=== PATIENT | female | born 1960 | race Caucasian/White ===

== ENCOUNTER 2016-10-12 07:00 | Inpatient (IN) | payer BC ==
[2016-10-02 12:34] VITALS: BMI 35.0
[2016-10-16] MEDS ORDERED: TRANEXAMIC ACID 1,000 MG in SODIUM CHLORIDE 0.9% 100 ML IVPB ONE ×4 (05:00)
[2016-10-16] MEDS ORDERED: MIDAZOLAM 2 MG/2 ML VIAL IV PRN (05:52)
[2016-10-16] MEDS ORDERED: DEXAMETHASONE SOD PHOSPHATE 10 MG/ML 1 ML VIAL IV ONE (05:52)
[2016-10-16] MEDS: LACTATED RINGERS 1,000 ML IV SCH ×3 (08:18→19:54)
[2016-10-16] MEDS ORDERED: LIDOCAINE 1% 20 ML VIAL (10MG/ML) FOR IV START INTRADERMA ONE (08:18)
[2016-10-16] MEDS: ONDANSETRON 4 MG/2 ML VIAL IVP ONE ×2 (08:18→12:39)
[2016-10-16] MEDS ORDERED: LACTATED RINGERS 1,000 ML BAG IV ONE (09:49)
[2016-10-16] MEDS ORDERED: SODIUM CHLORIDE 0.9% 100 ML BAG ONE (09:49)
[2016-10-16] MEDS ORDERED: SODIUM CHLORIDE 0.9% IRRIG 3,000 ML BAG IRRIGATION ONE (09:49)
[2016-10-16] MEDS ORDERED: SODIUM CHLORIDE 0.9% 500 ML BAG ONE (09:49)
[2016-10-16] MEDS ORDERED: HYDROmorphone (PF) 1 MG/ML ONE (09:49)
[2016-10-16] MEDS ORDERED: MIDAZOLAM 2 MG/2 ML VIAL ONE (09:49)
[2016-10-16] MEDS ORDERED: diphenhydrAMINE 50 MG/ML 1 ML VIAL ONE (09:49)
[2016-10-16] MEDS ORDERED: KETOROLAC 30 MG/ML 1 ML VIAL ONE (09:49)
[2016-10-16] MEDS ORDERED: fentaNYL (PF) 50 MCG/ML 2 ML AMP ONE (09:49)
[2016-10-16] MEDS: ceFAZolin 2 GM in SODIUM CHLORIDE 0.9% 100 ML IVPB ONE ×2 (09:49→15:42)
[2016-10-16] MEDS ORDERED: PROPOFOL 10 MG/ML 20 ML VIAL IV ONE (09:49)
[2016-10-16] MEDS ORDERED: ceFAZolin 1,000 MG VIAL ONE (09:49)
[2016-10-16] MEDS ORDERED: ceFAZolin 3,000 MG in SODIUM CHLORIDE 0.9% IRRIGATIO 3,000 ML IRRIGATION ONE (10:23)
[2016-10-16] MEDS ORDERED: LACTATED RINGERS 1,000 ML IV ONE (10:49)
[2016-10-16] MEDS ORDERED: ACETAMINOPHEN TAB 325 MG TAB PO PRN (12:05)
[2016-10-16] MEDS ORDERED: MAGNESIUM HYDROXIDE 2,400 MG/10 ML CUP PO PRN (12:05)
[2016-10-16] MEDS ORDERED: HYDROmorphone 1 MG/ML 1 ML SYRINGE IVP PRN ×2 (12:05)
[2016-10-16] MEDS ORDERED: NA PHOS,M-B/NA PHOS,DI-BA 133 ML ENEMA RECTAL PRN (12:05)
[2016-10-16] MEDS ORDERED: HYDROcodone/APAP 5-325MG 1 EACH TAB PO PRN (12:05)
[2016-10-16] MEDS ORDERED: NALOXONE 0.4 MG/ML 1 ML VIAL IV PRN (12:05)
[2016-10-16] MEDS ORDERED: ONDANSETRON 4 MG/2 ML VIAL IVP PRN (12:05)
[2016-10-16] MEDS ORDERED: BISACODYL 10 MG SUPP RECTAL PRN (12:05)
[2016-10-16] MEDS ORDERED: TEMAZEPAM 15 MG CAP PO PRN (12:05)
[2016-10-16] MEDS: HYDROmorphone 1 MG/ML 1 ML SYRINGE IVP PRN ×3 (12:39→21:43)
--- NOTE | 2016-10-16 12:50 | XR ---
Limited left knee HISTORY: Status post left knee arthroplasty No comparisons 2 views of the left knee Patient is status post left knee arthroplasty. Lucency in the soft tissues is compatible with postop state. There is anatomic alignment. Ossific density present medial to the proximal tibia could possib ly represent a large osteophyte, difficult to exclude a loose body. IMPRESSION: Orthopedic follow-up, additional findings above.
[2016-10-16] MEDS: HYDROcodone/APAP 5-325MG 1 EACH TAB PO PRN ×2 (13:46→19:07)
[2016-10-16] MEDS ORDERED: WARFARIN 5 MG TAB PO ONE (18:00)
[2016-10-16] MEDS: ceFAZolin 2 GM in SODIUM CHLORIDE 0.9% 100 ML IVPB SCH ×2 (18:07→23:46)
--- NOTE | 2016-10-16 18:52 | CONS ---
DATE OF CONSULTATION: 10/16/2016 REASON FOR CONSULTATION: Advice regarding GERD and other multiple medical issues, requested by Orthopedics. HISTORY OF PRESENT ILLNESS: This 56-year-old woman with a past medical history of GERD, history of DJD, history of nicotine dependence, being followed by Dr. Moore in the outpatient setting, was admitted after left total knee arthroplasty. There is no history of chest pain, no history of palpitations, headache, loss of consciousness, nausea, vomiting, diarrhea, fever, rigor or chills at this time. PAST MEDICAL HISTORY: 1. History of GERD. 2. DJD. 3. History of colonoscopy. 4. History of nicotine dependence. 5. Ethanol. Medications prior to admission include omeprazole 20 mg daily. ALLERGIES: NONE. FAMILY HISTORY: No history of heart disease or strokes in the family. SOCIAL HISTORY: Previous history of smoking. Alcohol per chart. REVIEW OF SYSTEMS: ENT: No diminished hearing. No diminished vision. CARDIOVASCULAR SYSTEM: No angina, palpitations. RESPIRATORY SYSTEM: No cough, hemoptysis. GI: No nausea, vomiting. : No dysuria, retention. NERVOUS SYSTEM: No numbness or weakness. ALLERGY/IMMUNOLOGY: No asthma or hayfever. MUSCULOSKELETAL: As mentioned earlier. HEMATOLOGY/ONCOLOGY: No history of anemia. ENDOCRINE: No history of diabetes, hypothyroidism. CONSTITUTIONAL: As mentioned earlier. DERMATOLOGY: Negative. RHEUMATOLOGY: Negative. PSYCHIATRY: As mentioned earlier. PHYSICAL EXAMINATION: Patient is alert and oriented x3. Pulse is 69, blood pressure 132/65, respiration 16, temperature normal, pulse ox 97% on 3 L. HEENT: Conjunctivae normal. Oral mucosa moist. NECK: No jugular venous distention. No carotid bruit. No lymph node enlargement. CARDIOVASCULAR SYSTEM: S1, S2 muffled. RESPIRATORY: Breath sounds diminished at the bases. A few scattered rhonchi and crackles. ABDOMEN: Soft, nontender. No mass palpable. LEGS: Status post knee arthroplasty. NERVOUS SYSTEM: Higher functions as mentioned earlier. Moves all 4 limbs. No focal motor or sensory deficit. LYMPHATICS: No lymph node palpable in neck, axillae or groin. SKIN: No ulcer, rash, bleeding. PREOPERATIVE LABS: CBC within normal limits. Coags are normal. Chemistry showed BUN at 25, glucose 143. UA showed minimal abnormalities. ASSESSMENT: 1. Status post left total knee arthroplasty. 2. History of gastroesophageal reflux disease. 3. History of nicotine dependence. 4. History of ethanol. 5. Increased random blood sugar. RECOMMENDATIONS AND DISCUSSION: In this 56-year-old woman who presented with multiple medical issues, I would recommend continuing current medications, continuing symptomatic treatment. I recommend baseline labs. DVT prophylaxis. Incentive spirometry. Otherwise, continue with the omeprazole. Will follow the patient closely with you. Patient may be asked to follow up with Dr. Moore closely after discharge. Thank you, Dr. Gama, for letting us participate in the care of this patient.
[2016-10-16] MEDS: hydrOXYzine PAMOATE 25 MG CAP PO PRN (19:06)
[2016-10-16] MEDS: PANTOPRAZOLE 40 MG TABLET PO SCH (19:08)
[2016-10-16] MEDS: SENNOSIDES-DOCUSATE SODIUM 1 EACH TAB PO SCH (19:53)
[2016-10-17] MEDS: hydrOXYzine PAMOATE 25 MG CAP PO PRN ×4 (00:30→23:30)
[2016-10-17] MEDS: HYDROcodone/APAP 5-325MG 1 EACH TAB PO PRN (00:31)
[2016-10-17] MEDS: HYDROmorphone 1 MG/ML 1 ML SYRINGE IVP PRN (04:45)
[2016-10-17] MEDS: LACTATED RINGERS 1,000 ML IV SCH ×3 (05:04→18:55)
[2016-10-17 07:27] LABS: Basophils % (A) 1 %; CHCM 33.4; Eosinophils % (A) 0 %; HCT 35.2 % (34.0-46.0); HDW 2.42; HGB 11.4 gm/dL (11.4-16.0); Luc # (Auto) 0.08; Luc % (Auto) 1; Lymphocytes # (A) 2.2 k/uL (1.0-4.8); Lymphocytes % (A) 29 %; MCH 31.2 pg (25.0-35.0); MCHC 32.4 g/dL (31.0-37.0); MCV 96.5 fL (80.0-100.0); Mean Platelet Volume 7.2; Monocytes # (A) 0.5 k/uL (0-1.0); Monocytes % (A) 7 %; Neutrophils # (A) 4.9 k/uL (1.3-7.7); Neutrophils % (A) 63 %; RBC 3.64 m/uL (3.80-5.40); RDW 13.2 % (11.5-15.5); WBC 7.7 k/uL (3.8-10.6); WBC (Perox) 8.35
[2016-10-17 07:31] LABS: INR 1.1 (<1.1); Prothrombin Time 11.4 sec (9.0-12.0)
[2016-10-17] MEDS ORDERED: HYDROcodone/APAP 7.5-325MG 1 EACH TAB PO PRN ×2 (07:38)
[2016-10-17 07:39] LABS: Anion Gap 11 mmol/L; Blood Urea Nitrogen 14 mg/dL (7-17); Calcium 8.4 mg/dL (8.4-10.2); Carbon Dioxide 26 mmol/L (22-30); Chloride 102 mmol/L (98-107); Glucose 94 mg/dL (74-99); Non-African American GFR(MDRD) >60 (>60 ml/min/1.73 sqM); Potassium 4.9 mmol/L (3.5-5.1); Sodium 139 mmol/L (137-145)
--- NOTE | 2016-10-17 08:39 | P.PN ---
Subjective Principal diagnosis: Status post left total knee arthroplasty This is a 56 year-old female post left total knee arthroplasty. This is post- op day 1. The patient was evaluated at the bedside today. The patient denies nausea, vomiting, abdominal pain, shortness of breath, and chest pain this morning. She states her pain is controlled at this time. The patient has not been up with physical therapy yet this morning. Objective - Vital Signs Vital signs: Vital Signs Temp 98.4 F 10/17/16 03:50 Pulse 76 10/17/16 03:50 Resp 16 10/17/16 03:50 BP 110/54 10/17/16 03:50 Pulse Ox 95 10/17/16 03:50 Intake & Output 10/16/16 10/17/16 10/17/16 18:59 06:59 18:59 Intake Total 1902 2000 Output Total 875 700 Balance 1027 1300 Weight 92.533 kg Intake: IV 1902 1000 Lactated Ringers 1,000 ml 100 1000 @ 100 mls/hr IV .Q10H [facility] Rx#:[id number] Oral 1000 Output: Urine 850 700 Estimated Blood Loss 25 Other: Voiding Method Indwelling Catheter Indwelling Catheter - Exam The patient does not appear in acute distress. Alert and orientated x3. Dressing is clean dry and intact. Incision appears fine with no erythema or active drainage. Calf is soft and nontender. Good foot and ankle motion without difficulty. Sensation and circulatory status is intact. - Labs CBC & Chem 7: 10/17/16 06:54 10/17/16 06:54 Labs: Abnormal Lab Results - Last 24 Hours (Table) 10/17/16 Range/Units 06:54 RBC 3.64 L (3.80-5.40) m/uL Laboratory Tests 10/17/16 06:54 PT 11.4 INR 1.1 Assessment and Plan (1) Primary localized osteoarthritis of left knee Status: Acute (2) Status post total left knee replacement not using cement Status: Acute Plan: 1. Continue pain control 2. Anticoagulation with Coumadin per protocol 3. Start physical therapy, CPM, and ambulation 4. Anticipate discharge home with homecare in the next 1-2 days
[2016-10-17] MEDS: PANTOPRAZOLE 40 MG TABLET PO SCH (10:11)
[2016-10-17] MEDS ORDERED: HYDROcodone/APAP 10-325MG 1 EACH TAB PO PRN (13:04)
[2016-10-17] MEDS ORDERED: KETOROLAC 30 MG/ML 1 ML VIAL IVP STA (13:04)
[2016-10-17] MEDS: HYDROcodone/APAP 10-325MG 1 EACH TAB PO PRN ×2 (13:17→18:52)
[2016-10-17] MEDS ORDERED: WARFARIN 7.5 MG TAB PO ONE (18:00)
[2016-10-17] MEDS: SENNOSIDES-DOCUSATE SODIUM 1 EACH TAB PO SCH (18:51)
[2016-10-18] MEDS: HYDROcodone/APAP 10-325MG 1 EACH TAB PO PRN ×4 (00:39→17:43)
[2016-10-18] MEDS: LACTATED RINGERS 1,000 ML IV SCH ×3 (05:09→15:25)
[2016-10-18] MEDS: hydrOXYzine PAMOATE 25 MG CAP PO PRN (06:02)
--- NOTE | 2016-10-18 06:29 | OP ---
DATE OF SERVICE: 10/16/2016 SURGEON: NAVEEN ARCHER DO BUSSER: Ana Templeton NP PREOPERATIVE DIAGNOSIS: Severe degenerative joint disease of the left knee. POSTOPERATIVE DIAGNOSIS: Severe degenerative joint disease of the left knee. OPERATION: Left total knee replacement arthroplasty utilizing Regino Persona press-fit components. ANESTHESIA: ESTIMATED BLOOD LOSS: SPECIMENS REMOVED: COMPLICATIONS: OPERATIVE FINDINGS: DESCRIPTION OF PROCEDURE: The patient was taken to the operative suite and placed in supine position. Spinal anesthesia was performed by the department of anesthesiology. A Betadine prep was carried out over the left knee from mid thigh to mid calf. Sterile drapes applied in the usual manner. Pneumatic tourniquet was inflated. A medial parapatellar incision was developed. Further dissection through the subcutaneous tissue performed. The medial retinaculum was identified. The patella was everted and dislocated laterally as the knee was brought into flexion and held in leg hess. The intramedullary cutting guide and jig was brought into position and appropriate alignment and cuts were developed for a size 5 femoral component. The provisionary component was then impacted in position. Alignment and stability maintained. Excellent bone component interface was noted. A tibial cutting guide and jig was brought into position and appropriate wafer cut was developed. The menisci both medial and lateral were excised. A size 4 tibial metal-backed plate was selected and utilization of a 12 mm provisionary spacer was noted. The knee was taken through range of motion and appropriate alignment and stability present. The spacer was removed and tibial tray was marked for position and appropriate peg holes were drilled in preparation for final tray. With the patella everted, the shelving planer was utilized in preparing for elected size 29 mm press-fit patellar component. All components were removed. Copious irrigation with Pulsavac antibiotic solution was performed. With the knee held in flexion the trabecular tray size 4 was impacted into position, predrilled peg holes and excellent bone component interface was noted. The final size 5 left femoral component was impacted into the position and appropriate bone component interface was maintained. The size 29 mm final patellar component was placed in peg hole and impacted and alignment maintained. The size 12 polyethylene component was locked in to the plate and alignment and position noted. All areas were irrigated. With the knee in flexion, copious irrigation was performed. The leg was brought into slight flexion and pneumatic tourniquet was deflated. Superficial bleeding was well controlled with electrocautery. Lateral retinaculum release was performed. Medial retinaculum was then approximated with #3 Vicryl suture in a horizontal mattress fashion and the #3 Vicryl Quill suture was utilized in reinforcing the medial retinaculum. Subcutaneous tissue was approximated with #2-0 Vicryl suture in interrupted fashion and #3 Quill suture was utilized in subcuticular closure. Dermabond was utilized in closing the wound. Betadine, Adaptic and sterile pressure dressing was applied. The patient was transferred to her room in satisfactory postop condition. GROSS PATHOLOGY: There was severe degenerative joint disease of the left knee with medial lateral subluxation. BPD
[2016-10-18 07:25] LABS: INR 1.2 (<1.1); Prothrombin Time 11.6 sec (9.0-12.0)
[2016-10-18] MEDS: PANTOPRAZOLE 40 MG TABLET PO SCH (08:08)
--- NOTE | 2016-10-18 08:27 | P.PN ---
Subjective Principal diagnosis: Status post left total knee arthroplasty This is a 56 year-old female post left total knee arthroplasty. This is post- op day 2. The patient was evaluated at the bedside today. The patient denies nausea, vomiting, abdominal pain, shortness of breath, and chest pain this morning. She states her pain is controlled at this time. The patient states she has ambulated to the bathroom and in the hallway. Objective - Vital Signs Vital signs: Vital Signs Temp 98.9 F 10/18/16 07:56 Pulse 85 10/18/16 07:56 Resp 16 10/18/16 07:56 BP 126/61 10/18/16 07:56 Pulse Ox 95 10/18/16 07:56 Intake & Output 10/17/16 10/18/16 10/18/16 18:59 06:59 18:59 Intake Total 480 400 Output Total 650 Balance -170 400 Weight 92.533 kg Intake: Oral 480 400 Output: Urine 650 Uretheral (Ley) 250 Other: # Voids 1 1 - Exam The patient does not appear in acute distress. Alert and orientated x3. Dressing is clean dry and intact. Incision appears fine with no erythema or active drainage. Calf is soft and nontender. Good foot and ankle motion without difficulty. Sensation and circulatory status is intact. - Labs CBC & Chem 7: 10/17/16 06:54 10/17/16 06:54 Labs: Laboratory Tests 10/18/16 06:40 PT 11.6 INR 1.2 Assessment and Plan (1) Primary localized osteoarthritis of left knee Status: Acute (2) Status post total left knee replacement not using cement Status: Acute Plan: 1. Continue pain control 2. Anticoagulation with Coumadin per protocol 3. Continue physical therapy, CPM, and ambulation 4. Anticipate discharge home with homecare tomorrow
--- NOTE | 2016-10-18 08:47 | PN ---
DATE OF SERVICE: 10/17/2016 This is a 56-year-old woman who was admitted after left total knee arthroplasty, has improved significantly. No chest pain, no palpitation. No fever. On exam, alert and oriented x3. Pulse 75, blood pressure 125/65, respirations 16, temperature is 98.4, pulse ox 94% on room air. HEENT: Conjunctivae normal. NECK: No jugular venous distension. CARDIOVASCULAR SYSTEM: S1, S2, muffled. RESPIRATORY: Breath sounds diminished at bases. No rhonchi, no crackles. Abdomen is soft, nontender. EXTREMITIES: Legs status post knee surgery. LABS: CBC, BMP within normal limits. ASSESSMENT: 1. Status post left total knee arthroplasty. 2. History of gastroesophageal reflux disease. 3. History of nicotine dependence. 4. History of ethyl alcohol. 5. Increased random blood sugar. RECOMMENDATION: Recommend to continue with the current medications, continue with the monitoring and symptomatic treatment. Continue with the DVT prophylaxis, pain medication. Closely follow with orthopedic surgery. Further recommendations to follow.
[2016-10-18] MEDS ORDERED: ETODOLAC 400 MG TAB PO PRN (10:11)
[2016-10-18] MEDS ORDERED: KETOROLAC 30 MG/ML 1 ML VIAL IM STA (10:13)
--- NOTE | 2016-10-18 15:29 | PN ---
DATE OF SERVICE: 10/18/2016 This 56-year-old woman was admitted after left knee arthroplasty, improved significantly. No chest pain, no palpitations. No fever. On exam, alert and oriented x3. Pulse 82, blood pressure 118/59, respirations 13, temperature 97.4, pulse ox 92% on room air. HEENT: Conjunctivae normal. NECK: No jugular venous distention. CARDIOVASCULAR: S1 and S2, muffled. RESPIRATORY: Breath sounds diminished at the bases. No rhonchi, no crackles. ABDOMEN: Soft, nontender. LEGS: Status post surgery. Minimal swelling of the left leg was present. NERVOUS SYSTEM: No focal deficits. LABS: Hemoglobin 11.4. ASSESSMENT: 1. Status post left total knee joint arthroplasty. 2. History gastroesophageal reflux disease. 3. History of nicotine dependence. 4. History of EtOH. 5. History of increased random blood sugar. RECOMMENDATIONS AND DISCUSSION: I recommend to continue the current medications, continue monitoring and symptomatic treatment. DVT prophylaxis. Incentive spirometry. Continue the current medications. Pain control. Further recommendations to follow.
[2016-10-18] MEDS ORDERED: WARFARIN 7.5 MG TAB PO ONE (18:00)
[2016-10-18] MEDS: SENNOSIDES-DOCUSATE SODIUM 1 EACH TAB PO SCH (20:00)
[2016-10-19] MEDS: HYDROcodone/APAP 10-325MG 1 EACH TAB PO PRN ×3 (00:02→10:46)
[2016-10-19 07:14] LABS: Basophils # (A) 0.1 k/uL (0-0.2); Basophils % (A) 2 %; CHCM 33.6; Eosinophils # (A) 0.2 k/uL (0-0.7); Eosinophils % (A) 3 %; HCT 32.5 % (34.0-46.0); HDW 2.43; HGB 10.5 gm/dL (11.4-16.0); Luc % (Auto) 2; Lymphocytes # (A) 1.9 k/uL (1.0-4.8); Lymphocytes % (A) 29 %; MCH 30.9 pg (25.0-35.0); MCHC 32.3 g/dL (31.0-37.0); MCV 95.7 fL (80.0-100.0); Monocytes # (A) 0.4 k/uL (0-1.0); Monocytes % (A) 7 %; Neutrophils # (A) 3.8 k/uL (1.3-7.7); Neutrophils % (A) 58 %; RBC 3.39 m/uL (3.80-5.40); RDW 13.1 % (11.5-15.5); WBC 6.6 k/uL (3.8-10.6); WBC (Perox) 6.87
[2016-10-19 07:28] LABS: INR 1.3 (<1.1)
[2016-10-19 07:38] VITALS: BP 134/63; PULSE 83; RESP 16; TEMP 97.6
[2016-10-19] MEDS: PANTOPRAZOLE 40 MG TABLET PO SCH (08:56)
--- NOTE | 2016-10-19 09:36 | P.DS ---
Providers Date of admission: 10/16/16 07:52 Expected date of discharge: 10/19/16 Attending physician: Yonathan Gama Consults: 10/16/16 12:05 Consult Physician Routine Consulting Provider: Tony Ruelas Consult Reason/Comments: medical managment Do you want consulting provider notified?: Yes Primary care physician: Teresa Omer Charbal - Discharge Diagnosis(es) (1) Primary localized osteoarthritis of left knee Current Visit: Yes Status: Acute (2) Status post total left knee replacement not using cement Current Visit: Yes Status: Acute Hospital Course: This is a pleasant 56-year-old female last seen in our office with complaints of left knee pain. Patient has known history of degenerative arthritis of the left knee and presented to discuss options. After discussion and consideration , the patient elected to proceed with a left total knee arthroplasty. Patient was seen preoperatively, and medically cleared for surgery by Dr. Moore. Patient was admitted to [facility] and underwent left total knee arthroplasty with Dr. Gama on 10/16/2016. The procedure was performed without complications or sequelae. The patient is seen and evaluated at bedside today. Pain is well-controlled. Patient has no new complaints today and denies any fevers, chills, nausea, vomiting, or shortness of breath. Vital signs are stable. Dressing is clean dry and intact. Incision looks fine with no erythema or active drainage. Calf is soft and nontender. Patient has full foot and ankle motion without difficulty. Patient's left lower extremity is neurovascularly intact. The patient is orthopedically stable for discharge home today. Pertinent Studies: Laboratory Tests 10/19/16 10/19/16 06:35 06:35 WBC 6.6 RBC 3.39 L Hgb 10.5 L Hct 32.5 L PT 13.0 H INR 1.3 Patient Condition at Discharge: Stable Plan - Discharge Summary New Discharge Prescriptions: Aspirin 325 mg PO DAILY #30 tab HYDROcodone/APAP 10-325MG [[place] 10-325] 1 - 2 tab PO Q4-6H PRN #60 tab PRN Reason: Pain Sennosides-Docusate Sodium [Senokot-S] 2 tab PO DAILY #30 tablet Warfarin [Coumadin] 2.5 mg PO DIRECTED #30 tab Discharge Medication List Omeprazole 20 mg PO DAILY 10/02/16 [History] Aspirin 325 mg PO DAILY #30 tab 10/19/16 [Rx] HYDROcodone/APAP 10-325MG [[place] 10-325] 1 - 2 tab PO Q4-6H PRN #60 tab [Rx] Sennosides-Docusate Sodium [Senokot-S] 2 tab PO DAILY #30 tablet 10/19/16 [Rx] Warfarin [Coumadin] 2.5 mg PO DIRECTED #30 tab 10/19/16 [Rx] Follow up Appointment(s)/Referral(s): Yonathan Gama DO [Doctor of Osteopathic Medicine] - 2 Weeks [facility], [NON-STAFF] - Ambulatory/Diagnostic Orders: Continuous Passive Motion (CPM) Machine [DME.AMB1] Time Frame: 3 Weeks, Location : Determined By Patient Activity/Diet/Wound Care/Special Instructions: Walker - has at home [facility] - [facility] - [phone] - call when you get home for delivery of CPM Weightbearing as tolerated with a walker Coumadin 2.5 mg 1 by mouth every other day for 7 days then take Aspirin 325mg daily for 1 month CPM 5-6 hours daily May shower in 3 days if no drainage from incision Keep incision clean and dry Call [facility] [phone] with questions or concerns Discharge Disposition: HOME WITH HOME HEALTH SERVICES
--- NOTE | 2016-10-19 11:25 | US ---
EXAMINATION TYPE: US venous doppler duplex LE LT DATE OF EXAM: 10/19/2016 9:44 AM COMPARISON: NONE CLINICAL HISTORY: pain, s/p total knee 10/16/16. SIDE PERFORMED: left VESSELS IMAGED: External Iliac Vein (EIV) Common Femoral Vein Deep Femoral Vein Greater Saphenous Vein * Femoral Vein Popliteal Vein Small Saphenous Vein * Proximal Calf Veins (* superficial vessels) Findings: There is spontaneous flow and normal compressibility IMPRESSION: 1. No evidence of DVT
--- NOTE | 2016-10-19 16:23 | PN ---
DATE OF SERVICE: 10/19/2016 This 56-year-old woman who was admitted for left knee arthroplasty is improving significantly. Patient has some leg swelling, and a venous Doppler was requested which showed no evidence of DVT. No chest pain. No palpitation. No fever. No shortness of breath. On exam, alert and oriented x3. Pulse 83, blood pressure 134/66, respiratory rate 16, temperature 97.6, pulse ox 93% on room air. HEENT: Conjunctivae normal. NECK: No jugular venous distention. CARDIOVASCULAR SYSTEM: S1, S2 muffled. No murmur. No thrills. RESPIRATORY SYSTEM: Breath sounds diminished at the bases. No rhonchi. No crackles. ABDOMEN: Soft, non-tender. No mass palpable. LEGS: Status post surgery. Minimal swelling of the left lower leg present. Otherwise, no calf tenderness present. NERVOUS SYSTEM: No focal deficit. Labs at this time show WBC 6.6, hemoglobin 10.5. ASSESSMENT: 1. Status post left total knee arthroplasty. 2. Anemia, postoperative, possibly dilutional, as expected. 3. History of gastroesophageal reflux disease. 4. History of nicotine dementia. 5. History of ethanol. 6. History of increased random blood sugar. RECOMMENDATIONS AND DISCUSSION: I recommend to continue with the current medications, continue with the monitoring, symptomatic treatment, continue with DVT prophylaxis. Otherwise, continue to monitor. Follow up with primary physician in 2 to 3 weeks or p.r.n. Further recommendations to follow. Continue incentive spirometry.
== END 2016-10-19 15:05 | disposition home health service (06) | DRG 470 ==
LOC: 2ORMAIN 10-16 07:52 → 3SUR 10-16 12:05
PROVIDERS: ADMIT Orthopaedic Surgery; ATTEND Orthopaedic Surgery
PROC: 0SRD0JA Replacement of Left Knee Joint with Synthetic Substitute, Uncemented, Open Approach (ICD-10-PCS; principal; 2016-10-16 09:35)
DX: M17.12 Unilateral primary osteoarthritis, left knee (principal); D64.9 Anemia, unspecified; K21.9 Gastro-esophageal reflux disease without esophagitis; Z87.891 Personal history of nicotine dependence; Z79.899 Other long term (current) drug therapy
CPT/HCPCS: 80048; 85025; 85610; 88300

== ENCOUNTER → 2018-04-24 | Outpatient (CLI) | payer BC ==
--- NOTE | 2018-04-08 15:21 | BD ---
EXAMINATION TYPE: Axial Bone Density DATE OF EXAM: 04/08/2018 COMPARISON: NONE CLINICAL HISTORY: Z.78post menopausal w/o HRT Height: 64 IN Weight: 226 LBS RISK FACTORS HISTORY OF: Active: YES Postmenopausal woman: AGE 48 Take estrogen and/or progesterone medications: NOT NOW How long: TOOK CONTROL FOR 25 YEARS MEDICATIONS: Additional Medications: PROTONIX, CARAFATE EXAM MEASUREMENTS: Bone mineral densitometry was performed using the [employer] System. Bone mineral density as measured about the Lumbar spine is: ----- L1-L4(G/cm2): 1.055 T Score Values are as follows: ----- L2: -1.4 ----- L3: -0.6 ----- L4: -1.2 ----- L1-L4: -1.0 Bone mineral density BASELINE Bone mineral density about the R hip (g/cm2): 1.052 Bone mineral density about the L hip (g/cm2): 1.057 T Score values are as follows: -----R Neck: 0.1 -----L Neck: 0.1 -----R Total: 0.9 -----L Total: 0.7 Bone mineral density BASELINE IMPRESSION: Osteopenia lumbar spine. NOTE: T-SCORE=SD OF THE YOUNG ADULT MEAN.
--- NOTE | 2018-04-24 09:20 | MM ---
Reason for exam: screening (asymptomatic). Last mammogram was performed 1 year and 7 months ago. History: Patient is postmenopausal. Family history of breast cancer in aunt. Took hormonal contraceptives for 25 years. Physical Findings: A clinical breast exam by your physician is recommended on an annual basis and results should be correlated with mammographic findings. MG Screening Mammo w CAD Bilateral CC and MLO view(s) were taken. XCCL view(s) were taken of the right breast. Prior study comparison: August 30, 2016, right breast MG work up mamm w CAD RT. August 27, 2016, bilateral MG screening mammo w CAD. The breast tissue is heterogeneously dense. This may lower the sensitivity of mammography. Finding: There are typically benign dystrophic calcifications in the subareolar position. There is a chronic nodularity in the left breast. There is no discrete abnormality. ASSESSMENT: Benign, BI-RAD 2 RECOMMENDATION: Routine screening mammogram of both breasts in 1 year.
--- NOTE | 2018-04-24 09:21 | MM ---
Reason for exam: additional evaluation requested from abnormal screening. Last mammogram was performed 1 month ago. History: Patient is postmenopausal. Family history of breast cancer in aunt. Took hormonal contraceptives for 25 years. MG Follow Up Bilat No Charge Bilateral CC and MLO view(s) were taken. XCCL view(s) were taken of the right breast. Prior study comparison: August 27, 2016, bilateral MG screening mammo w CAD. July 12, 2010, bilateral digital screening mammogram. The breast tissue is heterogeneously dense. This may lower the sensitivity of mammography. There are typically benign dystrophic calcifications in the subareolar position. There is a chronic nodularity in the left breast. There is no discrete abnormality. These results were verbally communicated with the patient and result sheet given to the patient on 04/24/18. ASSESSMENT: Benign, BI-RAD 2 RECOMMENDATION: Return to routine screening mammogram schedule for both breasts.
== END | disposition home or self-care (01) ==
LOC: RADBDWWP 04-08 14:11
PROVIDERS: ATTEND Obstetrics & Gynecology
DX: Z12.31 Encounter for screening mammogram for malignant neoplasm of breast (principal); M85.88 Other specified disorders of bone density and structure, other site; Z78.0 Asymptomatic menopausal state
CPT/HCPCS: 77066; 77067; 77080

== ENCOUNTER → 2020-04-13 | Outpatient (CLI) | payer BC ==
--- NOTE | 2020-04-13 10:58 | MM ---
Reason for exam: screening (asymptomatic). Last mammogram was performed 2 years ago. History: Patient is postmenopausal. Family history of breast cancer in maternal aunt. Took hormonal contraceptives for 25 years beginning at age 16. Physical Findings: A clinical breast exam by your physician is recommended on an annual basis and results should be correlated with mammographic findings. MG Screening Mammo w CAD Bilateral CC and MLO view(s) were taken. XCCL view(s) were taken of the left breast. Prior study comparison: April 24, 2018, bilateral MG follow up bilat no charge. April 08, 2018, bilateral MG screening mammo w CAD. The breast tissue is heterogeneously dense. This may lower the sensitivity of mammography. Finding: There is an intermediate concern, suspicious 11 mm high density, circumscribed, microlobulated mass located 2-3 cm from the nipple in the 12-1 o'clock position of the left breast. New finding since April 24, 2018 and April 08, 2018. ASSESSMENT: Incomplete: need additional imaging evaluation, BI-RAD 0 RECOMMENDATION: Ultrasound of the left breast. [facility] will attempt to contact patient to return for ultrasound.
== END | disposition home or self-care (01) ==
LOC: RADMAMWWP 07:10
PROVIDERS: ATTEND Internal Medicine
DX: Z12.31 Encounter for screening mammogram for malignant neoplasm of breast (principal)
CPT/HCPCS: 77067

== ENCOUNTER → 2020-04-20 | Outpatient (CLI) | payer BC ==
--- NOTE | 2020-04-20 09:02 | USB ---
Reason for exam: additional evaluation requested from abnormal screening. History: Patient is postmenopausal. Family history of breast cancer in maternal aunt. Took hormonal contraceptives for 25 years beginning at age 16. Physical Findings: Nurse did not find any significant physical abnormalities on exam. US Breast Workup LT Left complete breast ultrasound includes all four quadrants, the retroareolar region and axilla. Finding demonstrates a 4 x 3 x 4mm oval, cystic lesion at 1 o'clock, a 4 x 3 x 5mm mixed lesion at 4 o'clock and a 4 x 3 x 4mm mixed lesion at 2 o'clock. These results were verbally communicated with the patient and result sheet given to the patient on 04/20/20. ASSESSMENT: Probably benign, BI-RAD 3 RECOMMENDATION: Follow-up diagnostic mammogram and ultrasound of the left breast in 6 months.
== END | disposition home or self-care (01) ==
LOC: RADUSWWP 07:11
PROVIDERS: ATTEND Internal Medicine
DX: R92.8 Other abnormal and inconclusive findings on diagnostic imaging of breast (principal)

== ENCOUNTER 2020-09-22 11:54 | Emergency (ER) | payer BC ==
[2020-09-22] MEDS ORDERED: KETOROLAC 15 MG/ML 1 ML VIAL IM STA (12:23)
--- NOTE | 2020-09-22 12:45 | ED ---
General Adult HPI - General Chief complaint: Extremity Injury, Lower Stated complaint: Leg Pain Time Seen by Provider: 09/22/20 12:08 Source: patient, RN notes reviewed Mode of arrival: ambulatory Limitations: no limitations - History of Present Illness Initial comments: 60-year-old female presents to the emergency department for right leg pain. Patient reports that for the past 3 days she has has a "gnawing" pain in the right lower leg. Patient states that it has progressively worsened. States it is now painful to bear weight on. States the pain is throughout the entire leg. She states that sometimes it is sharp and shooting. States the top of her foot is tingly. Patient states that about a month ago she had a bout of severe back pain however that has since resolved. At that time she was unable to stand up as of this pain. Patient is denying any weakness of the lower extremities, bladder or bowel changes, fevers or chills, or saddle anesthesia.Patient has no other complaints at this time including shortness of breath, chest pain, abdominal pain, nausea or vomiting, headache, or visual changes. - Related Data Home Medications Medication Instructions Recorded Confirmed Omeprazole 40 mg PO DAILY 10/02/16 09/22/20 Previous Rx's Medication Instructions Recorded predniSONE 50 mg PO DAILY #5 tablet 09/22/20 Allergies Allergy/AdvReac Type Severity Reaction Status Date / Time No Known Allergies Allergy Verified 09/22/20 12:31 Review of Systems ROS Statement: Those systems with pertinent positive or pertinent negative responses have been documented in the HPI. ROS Other: All systems not noted in ROS Statement are negative. Past Medical History Past Medical History: GERD/Reflux History of Any Multi-Drug Resistant Organisms: None Reported Past Surgical History: Orthopedic Surgery Additional Past Surgical History / Comment(s): left knee Past Psychological History: No Psychological Hx Reported Smoking Status: Never smoker Past Alcohol Use History: Occasional Past Drug Use History: None Reported General Exam Limitations: no limitations General appearance: alert, in no apparent distress Head exam: Present: atraumatic, normocephalic, normal inspection Eye exam: Present: normal appearance, PERRL, EOMI. Absent: scleral icterus, conjunctival injection, periorbital swelling ENT exam: Present: normal exam, mucous membranes moist Neck exam: Present: normal inspection, full ROM. Absent: tenderness, meningismus, lymphadenopathy Respiratory exam: Present: normal lung sounds bilaterally. Absent: respiratory distress, wheezes, rales, rhonchi, stridor Cardiovascular Exam: Present: regular rate, normal rhythm, normal heart sounds. Absent: systolic murmur, diastolic murmur, rubs, gallop, clicks GI/Abdominal exam: Present: soft, normal bowel sounds. Absent: distended, tenderness, guarding, rebound, rigid Extremities exam: Present: tenderness (Minimal tenderness in the sciatic notch of the right gluteal), normal capillary refill (Capillary refill less than 2 seconds, DP pulse 2+ in the right lower extremity and equal bilaterally.). Absent: calf tenderness (no calf tenderness, negative Homans sign.), other (No swelling right lower extremity, no erythema) Course Vital Signs 09/22/20 09/22/20 11:57 13:25 Temperature 98.5 F 98.7 F Pulse Rate 90 80 Respiratory 18 16 Rate Blood Pressure 122/77 149/83 O2 Sat by Pulse 97 97 Oximetry Medical Decision Making - Medical Decision Making Vitals are stable. Patient is well-appearing. Patient when you pain in the right leg that is gnawing and sometimes shooting consistent with sciatic pain. Neurovascular status intact. She did have severe back pain one month ago. CT lumbar spine was ordered which showed multilevel disc bulges without spinal canal stenosis. At this time patient was given medications which did help with her pain here in the emergency room. She will be started on steroids and Tylenol 3. I did offer her additional medication before discharge that she did accept. She will follow-up with orthopedics. She'll return here for any worsening symptoms. I discussed this case with attending Dr. Weems who agrees with this assessment and treatment plan. Disposition Clinical Impression: Bulging discs, Radiculopathy Disposition: HOME SELF-CARE Condition: Good Instructions (If sedation given, give patient instructions): Lumbar Radiculopathy (ED) Additional Instructions: Lasix Tylenol for pain. If pain is severe take Tylenol [address] taking these. Take steroid as directed. Follow-up with your doctor in one to 2 days. Follow-up with orthopedics as well. Return to the emergency room for any worsening symptoms. Prescriptions: predniSONE 50 mg PO DAILY #5 tablet Is patient prescribed a controlled substance at d/c from ED?: No Referrals: Josh Moore MD [Primary Care Provider] - 1-2 days Lana Veliz DO [Doctor of Osteopathic Medicine] - 1-2 days Time of Disposition: 13:48
--- NOTE | 2020-09-22 12:57 | CT ---
EXAMINATION TYPE: CT lumbar spine wo con DATE OF EXAM: 09/22/2020 COMPARISON: None HISTORY: Back pain radiates down right leg CT DLP: 1079.4 mGycm CONTRAST: None TECHNIQUE: CT of the lumbar spine is performed on a spiral scan at 3 mm thick sections. Reconstructed images are performed in the coronal and sagittal planes. FINDINGS: Degenerative disc changes and vacuum phenomenon is present L5-S1. Vacuum phenomenon is also present at the sacroiliac joints bilaterally. T12-L1: No focal disc herniation or significant disc bulge is evident. No spinal canal stenosis or neural foraminal stenosis is present. L1-L2: Mild disc bulging is anterior thecal sac contact. No AP spinal canal stenosis is present. Neur al foramen are patent. L2-L3: Mild disc bulge is present. No spinal canal stenosis is present. There is anterior thecal sac flattening from disc bulging L3-L4: Broad-based disc bulge has mild anterior thecal sac compression. No AP spinal canal stenosis p resent. Mild ligamentum flavum laxity is present L4-L5: Mild disc bulge has anterior thecal sac flattening. Facet hypertrophy is present. No spinal ca nal stenosis or neural foraminal stenosis is L5-S1: Some residual disc bulge is present which has anterior thecal sac contact. No spinal canal sona nosis or neural foraminal stenosis is present Vertebral alignment appears normal. IMPRESSION: Multilevel disc bulges discussed above have mild anterior thecal sac flattening. No spinal canal sten osis is present. 2. Degenerative disc changes L5-S1
[2020-09-22 13:27] VITALS: BP 149/83; PULSE 80; RESP 16; TEMP 98.7
[2020-09-22] MEDS ORDERED: MORPHINE SULFATE 2 MG/ML SYRINGE IVP STA (13:47)
[2020-09-22] MEDS ORDERED: predniSONE 50 MG TAB PO STA (13:48)
[2020-09-22] MEDS ORDERED: MORPHINE SULFATE 2 MG/ML SYRINGE IM STA (13:58)
[2020-09-22] MEDS ORDERED: ACET/COD 300 MG/30 MG STARTER PACK 6 TAB BTL PO STA (14:18)
== END 2020-09-22 14:23 | disposition home or self-care (01) ==
LOC: EC 11:54
DX: M54.16 Radiculopathy, lumbar region (principal); M51.26 Other intervertebral disc displacement, lumbar region; M51.37 Other intervertebral disc degeneration, lumbosacral region; K21.9 Gastro-esophageal reflux disease without esophagitis; Z79.899 Other long term (current) drug therapy
CPT/HCPCS: 72131; 96372; 99283

== ENCOUNTER → 2020-11-11 | Outpatient (CLI) | payer BC ==
--- NOTE | 2020-11-11 23:34 | MR ---
EXAMINATION TYPE: MR lumbar spine wo con DATE OF EXAM: 11/11/2020 COMPARISON: None HISTORY: Low back pain for 2 months, pain runs down right leg. Multiplanar multiecho imaging of the lumbar spine was performed without contrast. Lumbar vertebra have normal alignment. There is slight narrowing and decreased signal in the disks th roughout the lumbar spine. There is no compression fracture. There is developmentally adequate spinal canal and no spinal stenosis. The lumbar neural foramina are fairly well-maintained. I see no bony d estructive process. The sacroiliac joints are intact. There is no lumbar paraspinal mass. Lumbar nerv e roots appear normal. IMPRESSION: Minor degenerative disc changes in the lumbar spine. No fracture. No spinal stenosis or disc herniati on.
== END | disposition home or self-care (01) ==
LOC: RADMRIMAIN 19:27
PROVIDERS: ATTEND Orthopaedic Surgery Orthopaedic Surgery of the Spine
DX: M47.26 Other spondylosis with radiculopathy, lumbar region (principal); M51.16 Intervertebral disc disorders with radiculopathy, lumbar region; M51.37 Other intervertebral disc degeneration, lumbosacral region; E66.9 Obesity, unspecified
CPT/HCPCS: 72148

== ENCOUNTER → 2020-11-19 | Outpatient (CLI) | payer BC ==
--- NOTE | 2020-11-19 10:51 | XR ---
EXAMINATION TYPE: XR ribs LT DATE OF EXAM: 11/19/2020 CLINICAL HISTORY: Pain, Fall Four views of the ribs fail demonstrate evidence for displaced rib fracture or secondary sign of rib fracture. Visualized lungs are clear. No evidence for pneumothorax. IMPRESSION: No displaced rib fractures seen. ICD 10 NO FRACTURE, INITIAL EVALUATION
== END | disposition home or self-care (01) ==
LOC: RADXRMAIN 10:20
PROVIDERS: ATTEND Internal Medicine
DX: R07.81 Pleurodynia (principal)

== ENCOUNTER → 2021-01-08 | Outpatient (CLI) | payer BC ==
--- NOTE | 2021-01-08 13:19 | XR ---
Right knee. She: Right knee pain COMPARISON: None. TECHNIQUE: 2 views the right knee were obtained. FINDINGS: There is no fracture or focal intraosseous abnormality. There is mild narrowing of medial compartment knee with mild marginal spurring consistent with mild osteoarthritic change. There is probable mild osteophytic change of the patella femoral compartment as well. There is no radiopaque foreign body or abnormal soft tissue calcification. IMPRESSION: 1. No evidence of fracture or dislocation. 2. Mild osteophytic changes of the medial compartment and patellofemoral compartment.
== END | disposition home or self-care (01) ==
LOC: LABWHC1 11:42
PROVIDERS: ATTEND Internal Medicine
DX: M25.761 Osteophyte, right knee (principal)

== ENCOUNTER → 2022-07-10 | Outpatient (CLI) | payer BC ==
--- NOTE | 2022-07-10 09:38 | BD ---
EXAMINATION TYPE: Axial Bone Density DATE OF EXAM: 07/10/2022 COMPARISON: NONE CLINICAL HISTORY: 61 year old Female. ICD-10 CODE: Z78.0 POST MENOPauSAL WITHOUT HRT Height: 64 Weight: 217.4 FRAX RISK QUESTIONS: Alcohol (3 or more units per day): no Family History (Parent hip fracture): no Glucocorticoids (More than 3mos): no (Ex: prednisone, prednisolone, methylprednisolone, dexamethasone, and hydrocortisone). History of Fracture in Adulthood: no Secondary Osteoporosis: 1. Type 1 Diabetes: no 2. Hyperthyroidism: no 3. Menopause before 45: no 4. Malnutrition: no 5. Chronic liver disease: no Rheumatoid Arthritis: no Current Tobacco Use: no RISK FACTORS HISTORY OF: Surgery to Spine/Hip(right/left)/Wrist (right/left): no Family History of Osteoporosis: no Active: no Diet low in dairy products/other sources of calcium: yes Postmenopausal woman: yes Lost more than 2 inches in height since high school: no MEDICATIONS: Additional History: EXAM MEASUREMENTS: Bone mineral densitometry was performed using the Rapid7 System. Bone mineral density as measured about the Lumbar spine is: ----- L1-L4(G/cm2): 1.046 T Score Values are as follows: ----- L1: -1.1 ----- L2: -1.8 ----- L3: -0.8 ----- L4: -1.0 ----- L1-L4: -1.1 Bone mineral density has: decreased -1.0 % since study of: 04.08.2018 Bone mineral density about the R hip (g/cm2): 1.028 Bone mineral density about the L hip (g/cm2): 1.070 T Score values are as follows: -----R Neck: -0.1 -----L Neck: -0.2 -----R Total: 0.9 -----L Total: 1.1 Bone mineral density has: increased 2.2 % since study of: 04.08.2018 FRAX%s: The graph provided illustrates a 5.9% chance for a major osteoporotic fx and a 0.1% chance fo r the hips probability for fx in 10 years time. IMPRESSION: Osteopenia (T Score between -2.5 and -1). There is slightly increased risk of fracture and the patient may be considered for treatment. Re-Screen 2-5 years. NOTE: T-SCORE=SD OF THE YOUNG ADULT MEAN.
--- NOTE | 2022-07-11 09:11 | MM ---
Reason for Exam: Screening (asymptomatic). Last mammogram was performed 2 year(s) and 2 month(s) ago. Patient History: Menarche at age 16. First Full-Term at age 30. Late child-bearing (after 30). Postmenopausal. Hormonal Contraceptives, from age 16 until age 29. Maternal aunt had breast cancer, age 55. Risk Values: Marisabel 5 year model risk: 1.9%. NCI Lifetime model risk: 8.9%. Prior Study Comparison: 04/08/2018 Bilateral Screening Mammogram, [facility]. 04/24/2018 Bilateral Diagnostic Mammogram, [facility]. 04/13/2020 Bilateral Screening Mammogram, [facility]. Tissue Density: The breast tissue is heterogeneously dense. This may lower the sensitivity of mammography. Findings: Analyzed By CAD. Single benign appearing round calcification left breast subareolar region redemonstrated. Stable small well-circumscribed round masses in the left breast posterior upper aspect favor benign lymph nodes. There is no suspicious group of microcalcifications or new suspicious mass in either breast. Overall Assessment: Benign, BI-RAD 2 Management: Screening Mammogram of both breasts in 1 year. A clinical breast exam by your physician is recommended on an annual basis and results should be correlated with mammographic findings. Electronically signed and approved by: Rasheed Andrade M.D.
== END | disposition home or self-care (01) ==
LOC: RADMAMWWP 07:28
PROVIDERS: ATTEND Internal Medicine
DX: Z12.31 Encounter for screening mammogram for malignant neoplasm of breast (principal); M85.89 Other specified disorders of bone density and structure, multiple sites; Z78.0 Asymptomatic menopausal state; Z80.3 Family history of malignant neoplasm of breast
CPT/HCPCS: 77067; 77080

== ENCOUNTER 2023-01-06 13:24 | Emergency (ER) | payer BC, OTHER ==
[2023-01-06 13:33] VITALS: TEMP 98.5
[2023-01-06] MEDS ORDERED: SODIUM CHLORIDE 0.9% 500 ML 500 ML IV STA (13:48)
--- NOTE | 2023-01-06 13:56 | ED ---
URI HPI - General Chief Complaint: Upper Respiratory Infection Stated Complaint: CODEY,Congestion Time Seen by Provider: 01/06/23 13:42 Source: patient, RN notes reviewed, old records reviewed Mode of arrival: ambulatory Limitations: no limitations - History of Present Illness Initial Comments: 62-year-old female presents to the emergency room with complaints of 1 week of nasal congestion and cough. Did see her primary care Dr Moore on Saturday prescribed Levaquin and prednisone with no improvement. Patient statesno sick contacts. Denies any fevers. No nausea vomiting diarrhea or abdominal pain. She states she does have chest pain with cough. History of GERD. Nonsmoker. MD Complaint: cough, nasal congestion -: week(s) (1) Severity scale (1-10): 3 Consistency: constant Improves With: nothing Worsens With: other (cough) Associated Symptoms: nasal congestion, cough Treatments Prior to Arrival: antibiotics, other (steroids) - Related Data Home Medications Medication Instructions Recorded Confirmed Omeprazole 40 mg PO DAILY 10/02/16 09/22/20 Previous Rx's Medication Instructions Recorded predniSONE 50 mg PO DAILY #5 tablet 09/22/20 Albuterol Inhaler [Ventolin Hfa 1 - 2 puff INHALATION Q6H PRN #1 01/06/23 Inhaler] unit Allergies Allergy/AdvReac Type Severity Reaction Status Date / Time No Known Allergies Allergy Verified 01/06/23 13:32 Review of Systems ROS Statement: Those systems with pertinent positive or pertinent negative responses have been documented in the HPI. ROS Other: All systems not noted in ROS Statement are negative. Past Medical History Past Medical History: GERD/Reflux History of Any Multi-Drug Resistant Organisms: None Reported Past Surgical History: Orthopedic Surgery Additional Past Surgical History / Comment(s): left knee Past Psychological History: No Psychological Hx Reported Smoking Status: Never smoker Past Alcohol Use History: Occasional Past Drug Use History: None Reported General Exam Limitations: no limitations General appearance: alert, in no apparent distress Head exam: Present: atraumatic, normocephalic Eye exam: Present: normal appearance. Absent: scleral icterus, conjunctival injection, periorbital swelling ENT exam: Present: mucous membranes moist Neck exam: Present: full ROM. Absent: tenderness, meningismus Respiratory exam: Present: wheezes. Absent: respiratory distress, accessory muscle use Cardiovascular Exam: Present: regular rate GI/Abdominal exam: Present: soft. Absent: distended, tenderness, rigid Extremities exam: Present: normal capillary refill. Absent: pedal edema Back exam: Present: full ROM. Absent: tenderness, CVA tenderness (R), CVA tenderness (L) Neurological exam: Present: alert, oriented X3 Psychiatric exam: Present: normal affect, normal mood Skin exam: Present: warm, dry, normal color. Absent: cyanosis, diaphoretic, petechiae, pallor Course Vital Signs 01/06/23 01/06/23 01/06/23 13:29 15:27 15:34 Temperature 98.5 F Pulse Rate 71 80 80 Respiratory 20 Rate Blood Pressure 149/92 O2 Sat by Pulse 93 L Oximetry 01/06/23 16:13 Temperature Pulse Rate 80 Respiratory 18 Rate Blood Pressure 132/78 O2 Sat by Pulse 100 Oximetry Medical Decision Making - Medical Decision Making Patient complaining of cough and congestion for one week. Denies any fevers. Seen Dr. Moore her primary care on Saturday and was placed on Levaquin and steroids EKG shows sinus bradycardia with a ventricular rate of 59, ME interval 0.159, QRS 0.98, QTc 0.412, no significant change compared to old dated 09/18/2016. Influenza, coronavirus and RSV swabs are negative. Chest x-ray interpreted by me shows no evidence of focal consolidation. Radiologist interpretation no acute pulmonary process. Labs show no evidence of leukocytosis. Hemoglobin and hematocrit are stable electrolytes are unremarkable. D-dimer was elevated at 0.74 therefore, CT angio chest was performed. CT showed no evidence of pulmonary embolism. Mild groundglass pulmonary inter stitial infiltrates. No suspicious pulmonary mass. Patient was given a DuoNeb treatment with improvement in her oxygen saturation and wheezing satting 100% on room air. She was instructed to continue the antibiotics and steroids as prescribed by her primary care doctor. She was prescribed an albuterol inhaler and directed to 1- 2 puffs every 4-6 hours for any wheezing. Follow-up with her primary care doctor within the next couple of days. Strict return parameters were discussed. She is agreeable to this plan of care. Case discussed with Dr. Weems Was pt. sent in by a medical professional or institution (, PA, COMPUTER EDUCATION PROFESSOR, urgent care, hospital, or skilled nursing...) When possible be specific @ -No Did you speak to anyone other than the patient for history (EMS, parent, family, police, friend...)? What history was obtained from this source @ -No Did you review nursing and triage notes (agree or disagree)? Why? @ -I reviewed and agree with nursing and triage notes Were old charts reviewed (outside hosp., previous admission, EMS record, old EKG, old radiological studies, urgent care reports/EKG's, skilled nursing records)? Report findings @ -Previous EKG Differential Diagnosis (chest pain, altered mental status, abdominal pain women, abdominal pain men, vaginal bleeding, weakness, fever, dyspnea, syncope, headache, dizziness, GI bleed, back pain, seizure, CVA, palpatations, mental health, musculoskeletal)? @ -Differential Dyspnea: Coronary syndrome, arrhythmia, tamponade, asthma, COPD, pulmonary embolism, pneumonia, pneumothorax, pulmonary effusion, anaphylaxis, diabetic ketoacidosis, flailed chest, pulmonary contusion, diaphragmatic rupture, anemia, neuromuscular, this is not meant to be an all-inclusive list. EKG interpreted by me (3pts min.). @ -As above X-rays interpreted by me (1pt min.). @ -yes as above CT interpreted by me (1pt min.). @ -no U/S interpreted by me (1pt. min.). @ -None done What testing was considered but not performed or refused? (CT, X-rays, U/S, labs)? Why? @ -None What meds were considered but not given or refused? Why? @ -None Did you discuss the management of the patient with other professionals (kimber adams i.e. , PA, COMPUTER EDUCATION PROFESSOR, lab, RT, psych nurse, social sciences professor, manager process excellence, teacher, medical corps officer, director of casework services)? Give summary @ -No Was smoking cessation discussed for >3mins.? @ -No Was critical care preformed (if so, how long)? @ -No Were there social determinants of health that impacted care today? How? (Homelessness, low income, unemployed, alcoholism, drug addiction, transportatio n, low edu. Level, literacy, decrease access to med. care, retirement, rehab)? @ -No Was there de-escalation of care discussed even if they declined (Discuss DNR or withdrawal of care, Hospice)? DNR status @ -No What co-morbidities impacted this encounter? (DM, HTN, Smoking, COPD, CAD, Cancer, CVA, ARF, Chemo, Hep., AIDS, mental health diagnosis, sleep apnea, morbid obesity)? @ -GERD, obesity Was patient admitted / discharged? Hospital course, mention meds given and route, prescriptions, significant lab abnormalities, going to OR and other pertinent info. @ -Discharged Undiagnosed new problem with uncertain prognosis? @ -No Drug Therapy requiring intensive monitoring for toxicity (Heparin, Nitro, Insulin, Cardizem)? @ -No Were any procedures done? @ -No Diagnosis/symptom? @ -URI Acute, or Chronic, or Acute on Chronic? @ -Acute Uncomplicated (without systemic symptoms) or Complicated (systemic symptoms)? @ -Uncomplicated Side effects of treatment? @ -No Exacerbation, Progression, or Severe Exacerbation? @ -No Poses a threat to life or bodily function? How? (Chest pain, [place], [place], pneumonia, PE, COPD, DKA, ARF, appy, cholecystitis, CVA, Diverticulitis, Homicidal, Suicidal, threat to staff... and all critical care pts) @ -No - Lab Data Result diagrams: 01/06/23 13:51 01/06/23 13:51 Lab Results 01/06/23 01/06/23 01/06/23 Range/Units 13:51 13:51 13:51 WBC 6.4 (3.8-10.6) k/uL RBC 4.74 (3.80-5.40) m/uL Hgb 14.0 (11.4-16.0) gm/dL Hct 42.3 (34.0-46.0) % MCV 89.2 (80.0-100.0) fL MCH 29.5 (25.0-35.0) pg MCHC 33.1 (31.0-37.0) g/dL RDW 14.1 (11.5-15.5) % Plt Count 282 (150-450) k/uL MPV 7.0 Neutrophils % (Manual) 71 % Lymphocytes % (Manual) 25 % Monocytes % (Manual) 3 % Basophils % (Manual) 1 % Neutrophils # (Manual) 4.54 (1.3-7.7) k/uL Lymphocytes # (Manual) 1.60 (1.0-4.8) k/uL Monocytes # (Manual) 0.19 (0-1.0) k/uL Basophils # (Manual) 0.06 (0-0.2) k/uL Nucleated RBCs 0 (0-0) /100 WBC Manual Slide Review Performed RBC Morphology Normal D-Dimer 0.74 H (<0.60) mg/L FEU Sodium 138 (137-145) mmol/L Potassium 4.4 (3.5-5.1) mmol/L Chloride 105 (98-107) mmol/L Carbon Dioxide 26 (22-30) mmol/L Anion Gap 7 mmol/L BUN 20 H (7-17) mg/dL Creatinine 0.73 (0.52-1.04) mg/dL Est GFR (CKD-EPI)AfAm >90 (>60 ml/min/1.73 sqM) Est GFR (CKD-EPI)NonAf 89 (>60 ml/min/1.73 sqM) Glucose 100 H (74-99) mg/dL Calcium 8.9 (8.4-10.2) mg/dL Influenza Type A (PCR) (Not Detectd) Influenza Type B (PCR) (Not Detectd) RSV (PCR) (Not Detectd) SARS-CoV-2 (PCR) (Not Detectd) 01/06/23 Range/Units 13:51 WBC (3.8-10.6) k/uL RBC (3.80-5.40) m/uL Hgb (11.4-16.0) gm/dL Hct (34.0-46.0) % MCV (80.0-100.0) fL MCH (25.0-35.0) pg MCHC (31.0-37.0) g/dL RDW (11.5-15.5) % Plt Count (150-450) k/uL MPV Neutrophils % (Manual) % Lymphocytes % (Manual) % Monocytes % (Manual) % Basophils % (Manual) % Neutrophils # (Manual) (1.3-7.7) k/uL Lymphocytes # (Manual) (1.0-4.8) k/uL Monocytes # (Manual) (0-1.0) k/uL Basophils # (Manual) (0-0.2) k/uL Nucleated RBCs (0-0) /100 WBC Manual Slide Review RBC Morphology D-Dimer (<0.60) mg/L FEU Sodium (137-145) mmol/L Potassium (3.5-5.1) mmol/L Chloride (98-107) mmol/L Carbon Dioxide (22-30) mmol/L Anion Gap mmol/L BUN (7-17) mg/dL Creatinine (0.52-1.04) mg/dL Est GFR (CKD-EPI)AfAm (>60 ml/min/1.73 sqM) Est GFR (CKD-EPI)NonAf (>60 ml/min/1.73 sqM) Glucose (74-99) mg/dL Calcium (8.4-10.2) mg/dL Influenza Type A (PCR) Not Detected (Not Detectd) Influenza Type B (PCR) Not Detected (Not Detectd) RSV (PCR) Not Detected (Not Detectd) SARS-CoV-2 (PCR) Not Detected (Not Detectd) - EKG Data -: EKG Interpreted by Mi EKG shows normal: sinus rhythm (Sinus bradycardia with a ventricular rate of 59, ME interval 0.159, QRS 0.98, QTc 0.412) Disposition Clinical Impression: Acute upper respiratory infection Disposition: HOME SELF-CARE Condition: Good Instructions (If sedation given, give patient instructions): Upper Respiratory Infection (ED) Additional Instructions: Use albuterol inhaler 1-2 puffs every 4-6 hours as needed for cough or wheezing. Continue the antibiotics as prescribed along with your steroids. Follow-up with your primary care doctor tomorrow. Prescriptions: Albuterol Inhaler [Ventolin Hfa Inhaler] 1 - 2 puff INHALATION Q6H PRN #1 unit PRN Reason: Wheezing Is patient prescribed a controlled substance at d/c from ED?: No Referrals: Josh Moore MD [Primary Care Provider] - 1-2 days Time of Disposition: 15:36
--- NOTE | 2023-01-06 14:04 | XR ---
EXAMINATION TYPE: XR chest 2V DATE OF EXAM: 01/06/2023 COMPARISON: Left ribs to 621 INDICATION: Cough congestion TECHNIQUE: Frontal and lateral views of the chest are obtained. FINDINGS: The heart size is normal. The pulmonary vasculature is normal. The lungs are clear. IMPRESSION: 1. No acute pulmonary process.
[2023-01-06 14:33] LABS: HCT 42.3 % (34.0-46.0); MCH 29.5 pg (25.0-35.0); MCHC 33.1 g/dL (31.0-37.0); MCV 89.2 fL (80.0-100.0); Platelet Count 282 k/uL (150-450); RBC 4.74 m/uL (3.80-5.40); RDW 14.1 % (11.5-15.5); WBC 6.4 k/uL (3.8-10.6)
[2023-01-06 14:34] LABS: African American GFR (CKD) >90 (>60 ml/min/1.73 sqM); Anion Gap 7 mmol/L; Blood Urea Nitrogen 20 mg/dL (7-17); Calcium 8.9 mg/dL (8.4-10.2); Carbon Dioxide 26 mmol/L (22-30); Chloride 105 mmol/L (98-107); Glucose 100 mg/dL (74-99); Non-African American GFR(CKD) 89 (>60 ml/min/1.73 sqM); Potassium 4.4 mmol/L (3.5-5.1); Sodium 138 mmol/L (137-145)
[2023-01-06] MEDS ORDERED: IPRATROPIUM-ALBUTEROL 3 ML NEB INHALATION STA (15:11)
--- NOTE | 2023-01-06 15:12 | CT ---
EXAMINATION TYPE: CT angio chest DATE OF EXAM: 01/06/2023 COMPARISON: None HISTORY: SOB and elevated d-dimer CT DLP: 408.4 mGycm Automated exposure control for dose reduction was used. CONTRAST: Performed with IV Contrast, patient injected with 61 mL of Isovue 370. Images obtained from the thoracic inlet to the diaphragm with the IV contrast. There is some patchy groundglass interstitial infiltrates in both lung stewart. Heart size is top norm al. No pericardial effusion. There are no hilar masses. There is no mediastinal adenopathy. Thoracic aorta is intact. No aneurysm or dissection. There is normal contrast opacification of the pu lmonary arteries. No filling defect. Ascending aorta measures 3.5 cm. Thoracic spine is intact. Sternum is intact. There is a 3 cm cyst in the anterior left lobe of the li douglas. There is 2 cm cyst posterior left lobe of the liver. IMPRESSION: No evidence of pulmonary embolism. Mild groundglass pulmonary interstitial infiltrates. No suspicious pulmonary mass.
[2023-01-06 15:30] VITALS: PULSE 80
[2023-01-06 15:37] LABS: Basophils # (M) 0.06 k/uL (0-0.2); Monocytes # (M) 0.19 k/uL (0-1.0); Neutrophils # (M) 4.54 k/uL (1.3-7.7); Neutrophils % (M) 71 %; Nucleated Red Blood Cells 0 /100 WBC (0-0); RBC Morphology Normal; Total Cells Counted 100
[2023-01-06 16:14] VITALS: BP 132/78; RESP 18
== END 2023-01-06 16:17 | disposition home or self-care (01) ==
LOC: EC 13:24
DX: J06.9 Acute upper respiratory infection, unspecified (principal); K21.9 Gastro-esophageal reflux disease without esophagitis; Z20.822 Contact with and (suspected) exposure to COVID-19; Z79.899 Other long term (current) drug therapy
CPT/HCPCS: 99284; 36415; 94640; 93005; 85379; 80048; 85025; 87636; 71046; 71275; 99285; Q9967

== ENCOUNTER → 2023-06-06 | Outpatient (CLI) | payer OTHER ==
--- NOTE | 2023-06-06 11:50 | XR ---
EXAMINATION TYPE: XR chest 2V DATE OF EXAM: 06/06/2023 COMPARISON: NONE HISTORY: Shortness of breath TECHNIQUE: Frontal and lateral views of the chest are obtained. FINDINGS: Scattered senescent parenchymal changes noted. Hyperinflation compatible with COPD. No evidence for infiltrate. No evidence for atelectasis. Heart size is stable. Mediastinal structures are stable and grossly unremarkable. No evidence for hilar prominence. Degenerative changes dorsal spine. IMPRESSION: 1. No evidence for acute pulmonary disease.
--- NOTE | 2023-06-06 11:51 | XR ---
EXAMINATION TYPE: XR ribs LT DATE OF EXAM: 06/06/2023 CLINICAL HISTORY: Pain, Fall Four views of the ribs fail demonstrate evidence for displaced rib fracture or secondary sign of rib fracture. Visualized lungs are clear. No evidence for pneumothorax. IMPRESSION: No displaced rib fractures seen. ICD 10 NO FRACTURE, INITIAL EVALUATION
== END | disposition home or self-care (01) ==
LOC: RADXRMAIN 11:21
PROVIDERS: ATTEND Emergency Medicine
DX: S29.019A Strain of muscle and tendon of unspecified wall of thorax, initial encounter (principal); R06.02 Shortness of breath; X58.XXXA Exposure to other specified factors, initial encounter
CPT/HCPCS: 71046

== ENCOUNTER → 2023-09-04 | Outpatient (CLI) | payer OTHER ==
--- NOTE | 2023-09-09 01:15 | MM ---
Reason for Exam: Screening (asymptomatic). Last mammogram was performed 1 year(s) and 2 month(s) ago. Patient History: Menarche at age 16. First Full-Term at age 30. Late child-bearing (after 30). Postmenopausal. Patient has history of breast feeding. Hormonal Contraceptives, from age 16 until age 29. Maternal aunt had breast cancer, age 55. Risk Values: Marisabel 5 year model risk: 1.9%. NCI Lifetime model risk: 8.6%. Prior Study Comparison: 04/24/2018 Bilateral Diagnostic Mammogram, [facility]. 04/13/2020 Bilateral Screening Mammogram, [facility]. 07/10/2022 Bilateral MG screening mammo w CAD, [facility]. Tissue Density: The breast tissue is heterogeneously dense. This may lower the sensitivity of mammography. Findings: Analyzed By CAD. Chronic nodularity on the left. There is no suspicious group of microcalcifications or new suspicious mass in either breast. Overall Assessment: Benign, BI-RAD 2 Management: Screening Mammogram of both breasts in 1 year. . Patient should continue monthly self-breast exams. A clinical breast exam by your physician is recommended on an annual basis. This exam should not preclude additional follow-up of suspicious palpable abnormalities. Note on Marisabel scores and lifetime risk: 1. A Marisabel score greater than 3% is considered moderate risk. If this is the case, consider specialist referral to assess eligibility for a risk reducing agent. 2. If overall lifetime risk for the development of breast cancer is 20% or higher, the patient may qualify for future screening with alternating mammogram and breast MRI. Electronically signed and approved by: George Grady M.D. Radiologist
== END | disposition home or self-care (01) ==
LOC: RADMAMWWP 15:47
PROVIDERS: ATTEND Family Medicine
DX: Z12.31 Encounter for screening mammogram for malignant neoplasm of breast (principal); Z78.0 Asymptomatic menopausal state; Z80.3 Family history of malignant neoplasm of breast
CPT/HCPCS: 77067